=== PATIENT | female | born 1960 | race African-American/Black ===

== ENCOUNTER 2017-07-12 18:57 | Emergency (ER) | payer OTHER ==
[~2017-07-12] VITALS: Ht 157.5 cm; Wt 72.1 kg
[~2017-07-12 18:57] MED LIST: CARISOPRODOL350 MG ORAL; IBUPROFEN600 MG ORAL; NKM; NORCO 10/3251 EA ORAL; NORCO 5-325 TA1 EACH ORAL; NORCO1 EA ORAL; NORVASC10 MG ORAL; OMEPRAZOLE40 M1 ORAL; PERCOCET 5-3251 EACH ORAL; PREDNISONE50 MG ORAL; ROBAXIN-750750 MG PO; TRAMADOL HCL50 MG ORAL
[2017-07-12] MEDS ORDERED: oxyCODONE HCL/Acetaminophen 5/325mg ORAL ONE (19:45)
--- NOTE | 2017-07-12 20:23 | Emergency Room Report ---
History of Present Illness General Chief Complaint: Lower Extremity Injury Source: Patient Present Illness HPI 56 YO Female presents to the ED c/o out of 10 in severity right foot and ankle pain status post mechanical trip and fall down a step 2 hours ago. Patient denies hitting her head she denies loss of consciousness. She reports pain is exacerbated upon weightbearing and walking. Patient states she has sensation in the affected extremity. Patient reports that she took Motrin prior to arrival. Denies numbness tingling or loss of sensation or gross motor movements of the extremities, incontinence of bowel or bladder. Denies CP, Palpitations, LOC, AMS, dizziness, Changes in Vision, Sensation, paresthesias, or a sudden severe headache. Allergies: Coded Allergies: No Known Allergies (Unverified , 04/27/13) Patient History Past Medical History: see triage record Past Surgical History: none Pertinent Family History: none Last Menstrual Period: na Reviewed Nursing Documentation: PMH: Agreed, PSxH: Agreed Nursing Documentation-PMH Past Medical History: No History, Except For Hx Hypertension: Yes Review of Systems All Other Systems: negative except mentioned in HPI Physical Exam Vital Signs Date Time Temp Pulse Resp B/P (MAP) Pulse Ox O2 Delivery O2 Flow Rate FiO2 07/12/17 19:02 98.4 98 18 120/77 99 Room Air Sp02 EP Interpretation: reviewed, normal General Appearance: no apparent distress, alert, GCS 15, non-toxic Head: normocephalic, atraumatic Eyes: bilateral eye normal inspection, bilateral eye PERRL ENT: hearing grossly normal, normal voice Neck: full range of motion Respiratory: lungs clear, normal breath sounds, speaking full sentences Cardiovascular #1: regular rate, rhythm, normal capillary refill Rectal: deferred Musculoskeletal: back normal, gait/station normal, normal range of motion, tender - ttp to the lateral left foot, and lateral left ankle, mild swelling noted, no bruises, pt is NVI. Neurologic: alert, oriented x3, responsive, motor strength/tone normal, sensory intact, speech normal Skin: normal color, no rash, warm/dry, well hydrated, abrasions - right anterior knee abrasion. Medical Decision Making PA Attestation Dr. La is my supervising Physician whom patient management has been discussed with. Diagnostic Impression: Primary Impression: Left ankle sprain Qualified Codes: S93.402A - Sprain of unspecified ligament of left ankle, initial encounter Additional Impression: Sprain of foot, left Qualified Codes: S93.602A - Unspecified sprain of left foot, initial encounter ER Course 56 YO Female presents to the ED c/o out of 10 in severity right foot and ankle pain status post mechanical trip and fall down a step 2 hours ago. Patient denies hitting her head she denies loss of consciousness. She reports pain is exacerbated upon weightbearing and walking. Patient states she has sensation in the affected extremity. Patient reports that she took Motrin prior to arrival. Denies numbness tingling or loss of sensation or gross motor movements of the extremities, incontinence of bowel or bladder. Denies CP, Palpitations, LOC, AMS, dizziness, Changes in Vision, Sensation, paresthesias, or a sudden severe headache. Ddx considered but are not limited to Fracture, dislocation, contusion, Sprain/ Strain/Spasm. Vital signs: are WNL, pt. is afebrilehe is of a H&PE are most consistent with musculoskeletal injury will perform imaging to r/ o fractures/dislocations. ORDERS: - X-rays right foot and ankle: No acute pathology ED INTERVENTIONS: -Percocet 5 mg -Right short leg posterior Splint applied by pet care technician. Pt. remains neurovascularly intact. --Patient is provided with crutches and instructed on their use DISCHARGE: At this time pt. is stable for d/c to home. Will provide printed patient care instructions, and any necessary prescriptions. Care plan and follow up instructions have been discussed with the patient prior to discharge. Other X-Ray Diagnostic Results Other X-Ray Diagnostic Results #1: X-Ray ordered: Left Foot # of Views/Limited Vs Complete: 3 View Indication: Pain EP Interpretation: Yes PA Xray: Interpretation reviewed, by supervising MD, and agrees with findings. Interpretation: no dislocation, no soft tissue swelling, no fractures - in her Impression: No acute disease Electronically Signed by: Deborah Harrington PA-C Other X-Ray Diagnostic Results #2: X-Ray ordered: Left ankle # of Views/Limited Vs Complete: 3 View Indication: Pain EP Interpretation: Yes PA Xray: Interpretation reviewed, by supervising MD, and agrees with findings. Interpretation: no dislocation, no soft tissue swelling, no fractures Impression: No acute disease Electronically Signed by: Deborah Harrington PA-C Last Vital Signs Date Time Temp Pulse Resp B/P (MAP) Pulse Ox O2 Delivery O2 Flow Rate FiO2 07/12/17 19:02 98.4 98 18 120/77 99 Room Air Disposition: HOME, SELF-CARE Condition: Stable Scripts Hydrocodone Bit/Acetaminophen 5-325* (NORCO 5-325*) 1 Each Tablet 1 TAB ORAL Q6H Y for For Pain, #5 TAB 0 Refills Prov: Deborah Harrington 07/12/17 Ibuprofen* (MOTRIN*) 600 Mg Tablet 600 MG ORAL THREE TIMES A DAY, #30 TAB 0 Refills Prov: Deborah Harrington 07/12/17 Departure Forms: Return to Work Return to Work Date: Jul 15, 2017 Return to Full Activity: Jul 19, 2017 Patient Instructions: Foot Sprain, Ankle Sprain Additional Instructions: Take medications as directed. Follow up with a Primary Care Provider in 3-5 days, even if your symptoms have resolved. --Please review list of primary care clinics, if you do not already have a primary care provider Return sooner to ED if new symptoms occur, or current symptoms become worse. - Please note that this Emergency Department Report was dictated using [employer] technology software, occasionally this can lead to erroneous entry secondary to interpretation by the dictation equipment. Deborah Harrington Jul 12, 2017 20:23
[2017-07-12] MEDS ORDERED: NORCO 5-325 TA1 EACH ORAL (20:48)
[2017-07-12] MEDS ORDERED: IBUPROFEN600 MG ORAL (20:48)
[2017-07-12 21:45] VITALS: BP 125/78
--- NOTE | 2017-07-13 10:06 | Diagnostic Imaging Report ---
Indication: PAIN, status post fall Technique: 3 views left foot Comparison: None Findings: No acute fractures. No dislocations. The joint spaces are preserved. There is metatarsus adductus Impression: No acute bony trauma
--- NOTE | 2017-07-13 10:15 | Diagnostic Imaging Report ---
Indication: PAIN Technique: 3 views of the left ankle Comparison: none Findings: No acute fractures. No dislocations. Joint spaces are preserved. Normal mineralization. No radiopaque foreign body. Impression: Negative
== END 2017-07-13 00:17 | disposition home or self-care (01) ==
LOC: EMR 19:44
DX: S93.401A Sprain of unspecified ligament of right ankle, initial encounter (principal); S93.602A Unspecified sprain of left foot, initial encounter; W18.30XA Fall on same level, unspecified, initial encounter; Y92.89 Other specified places as the place of occurrence of the external cause; I10 Essential (primary) hypertension
CPT/HCPCS: 99284

== ENCOUNTER 2018-10-16 14:00 | Emergency (ER) | payer OTHER ==
[~2018-10-16] VITALS: Ht 157.5 cm; Wt 73.5 kg
[2018-10-16 14:11] VITALS: BP 121/88
[2018-10-16] MEDS ORDERED: oxyCODONE HCL/Acetaminophen 5/325mg ORAL ONE (15:00)
[2018-10-16 15:25] VITALS: BP 121/88
--- NOTE | 2018-10-16 15:25 | NUR ---
ED Nurse Note: Pt was seen due to chronic back pain and hippain. Pt cleared by health care provider for discharge. Pt refused to sign DC papers. No prescription given. All electromedical service engineer such as ID band removed. Pt is AAO x4, ambulatory and left with all personal belongings.
--- NOTE | 2018-10-16 20:35 | Emergency Room Report ---
History of Present Illness General Chief Complaint: Pain Source: Patient Present Illness HPI The patient is a 58-year-old female with a history of chronic back pain presenting for back pain. She is currently under pain management and is taking Maxton as well as a muscle relaxer. She states that pain has increased recently and is now described as a 10 out of 10 dull ache to the mid lower back. This radiates to both hips. She states that this is typical for her back pain. She denies any injury that caused the pain. She denies other symptoms including N, V , F, chills, incontinence, CP, SOB Allergies: Coded Allergies: No Known Allergies (Unverified , 04/27/13) Patient History Past Medical History: see triage record Pertinent Family History: none Now: No Reviewed Nursing Documentation: PMH: Agreed; PSxH: Agreed Nursing Documentation-PMH Past Medical History: No History, Except For Hx Hypertension: Yes Review of Systems All Other Systems: negative except mentioned in HPI Physical Exam Vital Signs Date Time Temp Pulse Resp B/P (MAP) Pulse Ox O2 Delivery O2 Flow Rate FiO2 10/16/18 14:11 98.8 18 121/88 97 Room Air 10/16/18 14:11 84 Sp02 EP Interpretation: reviewed, normal General Appearance: no apparent distress, alert, GCS 15, non-toxic Head: normocephalic, atraumatic Eyes: bilateral eye normal inspection, bilateral eye PERRL Musculoskeletal: gait/station normal, tender - Lumbar region paraspinal muscles Neurologic: alert, oriented x3, responsive, motor strength/tone normal, sensory intact, speech normal Psychiatric: judgement/insight normal, memory normal, mood/affect normal, no suicidal/homicidal ideation Skin: normal color, no rash, warm/dry, well hydrated Medical Decision Making PA Attestation Dr. Izquierdo is my supervising physician. Patient management was discussed with my supervising physician Diagnostic Impression: Primary Impression: Chronic pain Qualified Codes: G89.29 - Other chronic pain ER Course The patient is a 58-year-old female with a history of chronic back pain presenting for back pain. Ddx considered include but not limited to lumbar strain, degenerative disease, epidural abscess, cauda equina, chronic pain, narcotic dependency. PE: afebrile. NAD No midline tenderness or step-offs. Sensation intact. Normal gait TTP over paraspinal muscles Cures report shows 180 Maxton prescribed on September 22. There is an extensive history. The patient was told she needs to follow-up with her primary doctor and pain management for further treatment. She is given 1 dose of pain medication here. Pain has decreased and she is discharged home. ER precautions given Last Vital Signs Date Time Temp Pulse Resp B/P (MAP) Pulse Ox O2 Delivery O2 Flow Rate FiO2 10/16/18 15:25 98.8 18 121/88 97 Room Air 10/16/18 14:11 84 Status: improved Disposition: HOME, SELF-CARE Condition: Improved Referrals: [facility],REFERRING (PCP) Patient Instructions: Chronic Pain Additional Instructions: Please follow-up with her primary doctor and pain management doctor for further evaluation and treatment. Return to emergency Department if you notice symptoms including worsening pain, fever, chills, numbness NITIN LENTZ Oct 16, 2018 20:35
== END 2018-10-16 15:35 | disposition home or self-care (01) ==
LOC: EMR 15:00
DX: M54.9 Dorsalgia, unspecified (principal); G89.29 Other chronic pain; I10 Essential (primary) hypertension
CPT/HCPCS: 99282

== ENCOUNTER 2019-02-14 22:35 | Emergency (ER) | payer OTHER ==
[~2019-02-14] VITALS: Ht 157.5 cm; Wt 72.6 kg
[2019-02-14] MEDS ORDERED: HYDROmorphone 1mg/ml Carpuject IM ONE (23:00)
--- NOTE | 2019-02-14 23:01 | Emergency Room Report ---
History of Present Illness General Chief Complaint: Lower Extremity Injury Source: Patient Present Illness HPI This is a 58-year-old female with a history of chronic back pain and hip pain. She had previous lumbar surgery done few years ago. Since then she complained of right hip pain. She said MRI couple years ago showed inflammation. She is taking Milpitas for it. She see a pain specialist. Patient presents with exacerbation of her right hip pain. Pain is 10 out of 10. Worse with certain movement. Cannot get comfortable. No relief with her pain medication. No trauma. No fever chills. No incontinence of bowel or urine. Allergies: Coded Allergies: No Known Allergies (Unverified , 04/27/13) Patient History Past Medical History: see triage record, old chart reviewed Past Surgical History: other Pertinent Family History: none Social History: Denies: smoking Last Menstrual Period: 2013 Now: No Immunizations: other Reviewed Nursing Documentation: PMH: Agreed; PSxH: Agreed Nursing Documentation-PMH Hx Hypertension: Yes Review of Systems Eye: Denies: eye pain, blurred vision ENT: Denies: ear pain, nose congestion, throat swelling Respiratory: Denies: cough, shortness of breath Cardiovascular: Denies: chest pain, palpitations Gastrointestinal: Denies: abdominal pain, diarrhea, nausea, vomiting Musculoskeletal: Reports: joint pain; Denies: back pain Skin: Denies: rash Neurological: Denies: headache, numbness Endocrine: Denies: increased thirst, increased urine Hematologic/Lymphatic: Denies: easy bruising All Other Systems: negative except mentioned in HPI Physical Exam Vital Signs Date Time Temp Pulse Resp B/P (MAP) Pulse Ox O2 Delivery O2 Flow Rate FiO2 02/14/19 22:40 98.1 88 18 128/84 (99) 99 Room Air Vitals normal Sp02 EP Interpretation: reviewed, normal General Appearance: well appearing, no apparent distress, alert Head: normocephalic, atraumatic Eyes: bilateral eye PERRL, bilateral eye EOMI ENT: hearing grossly normal, normal pharynx Neck: full range of motion, supple, no meningismus Respiratory: chest non-tender, lungs clear, normal breath sounds Cardiovascular #1: regular rate, rhythm, no murmur Gastrointestinal: normal bowel sounds, non tender, no mass, no organomegaly, no bruit, non-distended Musculoskeletal: back normal, gait/station normal, normal range of motion, other - Right hip with pain with range of motion. No deformity. No redness. Neurologic: alert, oriented x3 Psychiatric: mood/affect normal Medical Decision Making Diagnostic Impression: Primary Impression: Hip pain, right Additional Impression: Chronic pain Qualified Codes: G89.4 - Chronic pain syndrome ER Course With exacerbation of chronic right hip pain. Clinically no evidence of septic hip. She is walking on it without any problem. There is no swelling. No redness. No temperature. Better after pain medication. Last Vital Signs Date Time Temp Pulse Resp B/P (MAP) Pulse Ox O2 Delivery O2 Flow Rate FiO2 02/14/19 22:40 98.1 88 18 128/84 (99) 99 Room Air Status: improved Disposition: HOME, SELF-CARE Condition: Stable Referrals: [facility],REFERRING (PCP) Additional Instructions: Follow-up with your doctor in 7 days. Return if symptoms worsen. Antony Maxwell MD Feb 14, 2019 23:01
[2019-02-14 23:20] VITALS: BP 128/84
== END 2019-02-14 23:20 | disposition home or self-care (01) ==
LOC: EMR 22:49
DX: M25.551 Pain in right hip (principal); G89.4 Chronic pain syndrome; I10 Essential (primary) hypertension
CPT/HCPCS: 96372; 99283; J1170